=== PATIENT | female | born 1990 | race Caucasian/White ===

== ENCOUNTER 2019-12-04 22:48 | Emergency (ER) | payer BC ==
[~2019-12-04] VITALS: Ht 157.5 cm; Wt 93.9 kg
[2019-12-04 22:54] VITALS: Ht 157.5 cm; Wt 93.9 kg
[2019-12-04 23:46] LABS: BASOPHIL % 0.5 % (0-2); PLATELET COUNT 237 x10^3mcL (130-400); RED CELL DISTRIBUTION WIDTH 13.2 % (11.5-14.5)
[2019-12-04 23:58] LABS: CALCIUM 9.2 mg/dL (8.5-10.1); CARBON DIOXIDE 29.3 mmol/L (21-32); CHLORIDE SERUM 104 mmol/L (98-107); CREATININE SERUM 0.9 mg/dL (0.6-1.0); GFR1 > 60 mL/min; GLUCOSE SERUM 119 mg/dL (74-106); POTASSIUM SERUM 3.8 mmol/L (3.5-5.1); SODIUM SERUM 141 mmol/L (136-145)
[2019-12-05 00:03] LABS: ALBUMIN 3.5 g/dL (3.4-5.0); ALKALINE PHOSPHATASE 102 U/L (46-116); ALT/SGPT 32 U/L (14-59); AST/SGOT 19 U/L (15-37); BILIRUBIN TOTAL 0.2 mg/dL (0.20-1.00); TOTAL PROTEIN, SERUM 7.1 g/dL (6.4-8.2)
[2019-12-05 03:41] VITALS: BP 102/59
== END 2019-12-05 03:37 | disposition home or self-care (01) ==
LOC: ED 22:48
PROVIDERS: Emergency Medicine
DX: R07.89 Other chest pain (principal); J45.909 Unspecified asthma, uncomplicated
CPT/HCPCS: Q0092; Q9967

== ENCOUNTER 2020-02-06 20:54 | Emergency (ER) | payer BC, OTHER ==
[~2020-02-06] VITALS: Ht 157.5 cm; Wt 90.4 kg
[2020-02-06 21:10] VITALS: Ht 157.5 cm; Wt 90.4 kg
[2020-02-06 22:08] VITALS: BP 127/85
== END 2020-02-06 22:08 | disposition home or self-care (01) ==
LOC: ED 20:54
DX: S13.4XXA Sprain of ligaments of cervical spine, initial encounter (principal); M25.512 Pain in left shoulder; M25.511 Pain in right shoulder; G43.909 Migraine, unspecified, not intractable, without status migrainosus; V49.49XA Driver injured in collision with other motor vehicles in traffic accident, initial encounter; Y93.I9 Activity, other involving external motion; Y92.488 Other paved roadways as the place of occurrence of the external cause; Y99.8 Other external cause status
CPT/HCPCS: J1885